=== PATIENT | male | born 1980 | race Caucasian/White ===

== ENCOUNTER → 2017-08-30 | Emergency (ER) | payer OTHER ==
[~2017-08-30] VITALS: Ht 180.3 cm; Wt 90.0 kg
[~2017-08-30] MED LIST: CLIN-80 PO; LORazepam 1 MG tablet PO ONE; NO HOME MEDS
[2017-08-30 22:43] LABS: BASOPHILS # (AUTO) 0.1 X10'3 (0-0.2); BASOPHILS % (AUTO) 0.4 % (0-1); EOSINOPHILS # (AUTO) 0.1 X10'3 (0-0.9); EOSINOPHILS % (AUTO) 0.6 % (0-6); HEMATOCRIT 43.5 % (42.0-52.0); HEMOGLOBIN 15.2 g/dl (14.0-17.9); LYMPHOCYTES # (AUTO) 2.7 X10'3 (1.1-4.8); LYMPHOCYTES % (AUTO) 17.7 % (21-51); MEAN CORPUSCULAR HEMOGLOBIN 30.8 PG (27.0-31.0); MEAN CORPUSCULAR HGB CONC 34.9 % (33.0-36.5); MEAN CORPUSCULAR VOLUME 88.3 FL (78-98); MEAN PLATELET VOLUME 9.4 FL (7.4-10.4); MONOCYTES # (AUTO) 1.6 X10'3 (0-0.9); MONOCYTES % (AUTO) 10.3 % (2-12); NEUTROPHILS # (AUTO) 10.7 X10'3 (1.8-7.7); PLATELET COUNT 235 X10'3 (140-440); RED BLOOD COUNT 4.93 X10'6 (4.70-6.10); RED CELL DISTRIBUTION WIDTH 13.7 % (11.5-14.5)
[2017-08-30 22:56] LABS: URINE AMPHETAMINE SCREEN POSITIVE (Neg); URINE BARBITUATE SCREEN NEGATIVE (Neg); URINE BENZODIAZEPINES SCREEN NEGATIVE (Neg); URINE CANNABINOID SCREEN POSITIVE (Neg); URINE COCAINE SCREEN NEGATIVE (Neg); URINE METHADONE SCREEN NEGATIVE (Neg); URINE OPIATE SCREEN NEGATIVE (Neg); URINE PHENCYCLIDINE SCREEN NEGATIVE (Neg)
[2017-08-30 23:00] LABS: ALANINE AMINOTRANSFERASE 35 U/L (12-78); ALBUMIN 4.3 G/DL (3.4-5.0); ALBUMIN/GLOBULIN RATIO 1.2 (1.1-1.5); ALKALINE PHOSPHATASE 76 IU/L (46-116); ANION GAP 9 (8-16); ASPARTATE AMINO TRANSFERASE 56 U/L (10-37); BILIRUBIN,TOTAL 0.5 MG/DL (0.1-1.0); BLOOD UREA NITROGEN 18 MG/DL (7-18); BUN/CREATININE RATIO 15.5 (5.4-32.0); CALCIUM 9.5 MG/DL (8.5-10.1); CHLORIDE 99 MMOL/L (99-107); CREATININE 1.16 MG/DL (0.60-1.10); GLUCOSE 86 MG/DL (70-104); POTASSIUM 3.7 MMOL/L (3.5-5.1); SODIUM 138 MMOL/L (135-145); TOTAL CARBON DIOXIDE 29.8 MMOL/L (24-32); TOTAL PROTEIN 7.9 G/DL (6.4-8.2); eGFR 71 ML/MIN
[2017-08-30 23:02] LABS: ETHANOL < 0.010 GM/DL (0.0-0.010)
[2017-09-01 10:19] VITALS: BP 135/80
== END | disposition home or self-care (01) ==
LOC: ER 21:21
DX: R45.851 Suicidal ideations (principal); F12.10 Cannabis abuse, uncomplicated; F15.10 Other stimulant abuse, uncomplicated
CPT/HCPCS: 36415; 80053; 80305; 80320; 84443; 85025; 99284; 99285

== ENCOUNTER 2017-10-08 01:21 | Emergency (ER) | payer OTHER ==
[~2017-10-08] VITALS: Ht 177.8 cm; Wt 75.9 kg
[~2017-10-08 01:21] MED LIST changes: -CLIN-80 PO; -LORazepam 1 MG tablet PO ONE
[2017-10-08 04:30] VITALS: BP 141/82
[2017-10-08] MEDS ORDERED: NAPR-56 PO (06:56)
== END 2017-10-08 08:42 | disposition home or self-care (01) ==
LOC: ER 01:22
DX: S93.401A Sprain of unspecified ligament of right ankle, initial encounter (principal); F12.10 Cannabis abuse, uncomplicated; F15.10 Other stimulant abuse, uncomplicated; X50.1XXA Overexertion from prolonged static or awkward postures, initial encounter; Y93.89 Activity, other specified; Y92.89 Other specified places as the place of occurrence of the external cause; Y99.8 Other external cause status
CPT/HCPCS: 73610; 73630; 99284; A6449

== ENCOUNTER 2025-03-26 08:50 | Emergency (ER) | payer OTHER ==
[~2025-03-26] VITALS: Ht 180.3 cm; Wt 97.2 kg
[2025-03-26 09:03] VITALS: BP 157/109; PULSE 100; RESP 18; O2SAT 100
--- NOTE | 2025-03-26 09:10 | Physician Documentation ---
History of Present Illness ~ General Stated Complaint: DOC NOTE Time Seen by MD: 09:06 OK to notify your PCP?: Yes Primary Medical Doctor: NONE Source: patient Mode of Arrival: POV Exam Limitations: no limitations History of Present Illness Initial Comments 44-year-old male requesting for a note to return back to work. He has been off work for the past 3 days due to sciatic pain flare-up on the right side. 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 He has taken ibuprofen for the pain over the past 3 days as well as some icy hot patches with much relief. He denies any bowel or bladder loss or saddle anesthesia. Medication Reconciliation Allergies: Coded Allergies: No Known Allergies (Unverified , 01/19/17) Miscellaneous Medications Home Med List (No Home Medications), (Reported) Past Medical History Past Medical History: No Pertinent History Past Surgical History: noncontributory Alcohol Use: Occasionally Drug Use: none, marijuana, methamphetamine Lives with: Family Lives In: Home Review of Systems All Other Systems at this time: Reviewed and Negative Physical Exam Physical Exam Vital Signs: RN Vital Signs have been reviewed: Yes Pulse Oximetry Reflects: adequate oxygenation Physical Exam General: Alert, no distress. HEENT: No injection, moist mucous membranes. Neck: Full range of motion. Respiratory: No respiratory distress, equal chest rise and fall. Chest: No accessory muscle use. Cardiovascular: Regular rate and rhythm. Gastrointestinal: Nondistended. Back: No midline tenderness, no CVA tenderness. Extremities: Normal range of motion, no deformity. Neurologic: Oriented x4. Psychiatric: Normal mood and affect. Skin: Normal color, warm and dry. Progress Results/Orders Reviewed/noted all lab results: Yes Results/Orders Vital Signs 03/26/25 03/26/25 09:03 09:22 Temp 97.8 97.8 Pulse 100 Resp 18 B/P (MAP) 157/109 Pulse Ox 100 O2 Flow Rate 0 Medical Decision Making Additional info obtained from: old records Findings Requesting note to return back to work. Physical exam is unremarkable. His symptoms have improved from sciatic on the right side. Differential Diagnosis Lumbar stenosis, cauda equina, a ruptured disc. Departure Disposition: 01 HOME / SELF CARE / HOMELESS Impression: Primary Impression: Sciatica of right side Condition: Stable Additional Instructions: Medically cleared to return back to work. Referrals: NO PRIMARY CARE PROVIDER (PCP) Education Educated: Patient Educated regarding: diagnosis, treatment, prognosis, need for follow up Additional Comment Medical Screen Exam This patient recieved a medical screening examination. After reviewing the individual's medical complaints with presenting symptoms and performing an appropriate physical examination, it was determined that no immediate life- threatening emergency medical condition is present. This individual is also not a women having contractions. Signature Scribe Signature: . Attestation: Scribed for Emergency,Department by Rebecca Ramos NP . 03/26/25 09:10 Parts of this note were created using [employer] voice recognition software program. While efforts were made to correct any mistakes made by this voice recognition software program, nonsensical phrases may remain in this note. In addition, there may be errors and syntax, grammar, content and spelling. REBECCA GONSALVESP Mar 26, 2025 09:10
[2025-03-26 09:22] VITALS: TEMP 97.8
== END 2025-03-26 09:24 | disposition home or self-care (01) ==
LOC: ER 08:51
DX: M54.31 Sciatica, right side (principal); F12.90 Cannabis use, unspecified, uncomplicated; F15.90 Other stimulant use, unspecified, uncomplicated; Z72.89 Other problems related to lifestyle
CPT/HCPCS: 99282